=== PATIENT | male | born 1965 | race Caucasian/White ===

== ENCOUNTER 2017-07-26 09:00 | Day surgery (SDC) | payer OTHER ==
[2017-07-26] MEDS ORDERED: NS 1,000 ML IV (09:15)
[2017-07-26] MEDS ORDERED: PROPOFOL 200 MG/20 ML VIAL As Ordered (09:19)
== END 2017-07-26 10:37 | disposition home or self-care (01) ==
LOC: M OPP 09:00
DX: Z12.11 Encounter for screening for malignant neoplasm of colon (principal); K64.8 Other hemorrhoids; K57.30 Diverticulosis of large intestine without perforation or abscess without bleeding; E11.9 Type 2 diabetes mellitus without complications; E78.00 Pure hypercholesterolemia, unspecified; F17.220 Nicotine dependence, chewing tobacco, uncomplicated; Z79.84 Long term (current) use of oral hypoglycemic drugs; Z79.899 Other long term (current) drug therapy
CPT/HCPCS: 45378